=== PATIENT | male | born 1990 | race Hispanic/Latino ===

== ENCOUNTER 2018-09-24 16:29 | Emergency (ER) | payer OTHER ==
[2018-09-24] MEDS ORDERED: ORPHENADRINE CITRATE 30 MG/ML ML ONE (16:57)
== END 2018-09-24 19:54 | disposition home or self-care (01) ==
LOC: EDH 16:29
DX: S20.219A Contusion of unspecified front wall of thorax, initial encounter (principal); M54.6 Pain in thoracic spine; V49.9XXA Car occupant (driver) (passenger) injured in unspecified traffic accident, initial encounter; Y93.89 Activity, other specified; Y92.410 Unspecified street and highway as the place of occurrence of the external cause; Y99.8 Other external cause status
CPT/HCPCS: 71046; 72072; 96372; 99283; J2360